=== PATIENT | female | born 1965 | race Caucasian/White ===

== ENCOUNTER 2018-01-09 21:07 | Emergency (ER) | payer BC, OTHER ==
[~2018-01-09] VITALS: Ht 170.2 cm; Wt 91.2 kg
[2018-01-09 21:13] VITALS: BP 138/81
[2018-01-09] MEDS ORDERED: SULF1TAB49 PO ×2 (21:30→21:52)
[2018-01-09] MEDS ORDERED: sulfamethoxazole/trimethoprim DS (800/160mg) tablet PO ONE (21:35)
== END 2018-01-09 22:14 | disposition home or self-care (01) ==
LOC: ER 21:07
DX: L03.115 Cellulitis of right lower limb (principal); Z88.8 Allergy status to other drugs, medicaments and biological substances
CPT/HCPCS: 99283